=== PATIENT | male | born 1950 | race Asian ===

== ENCOUNTER → 2016-11-01 | Outpatient (CLI) | payer SELFPAY ==
--- NOTE | 2016-11-01 17:57 | REP ---
CHEST, TWO VIEWS: Two views of the chest are performed with priors for comparison. There is no acute infiltrate. The heart is normal in size. There is tortuosity of the thoracic aorta. There appears to be a nipple shadow projection in each lung base. Visualized osseous structures appear unremarkable. IMPRESSION: No active pulmonary disease. Signed by Rupesh Kinney MD 11/05/2016 10:09 A
== END ==
LOC: M WUC 15:42
PROVIDERS: ATTEND Physician Assistant
DX: Z11.1 Encounter for screening for respiratory tuberculosis (principal)

== ENCOUNTER → 2016-11-14 | Outpatient (CLI) | payer SELFPAY | LOC: M LAB 09:34 | PROVIDERS: ATTEND Family Medicine Adult Medicine | DX: R76.11 Nonspecific reaction to tuberculin skin test without active tuberculosis (principal) ==